=== PATIENT | female | born 1965 | race African-American/Black ===

== ENCOUNTER 2017-12-09 15:27 | Emergency (ER) | payer MEDICARE, OTHER ==
[2017-12-09] MEDS ORDERED: methylPREDNISolone Acetate 40 mg/ml Vial ONE (15:58)
[2017-12-09] MEDS ORDERED: cefTRIAXone\\ROCEPHIN 1 GM VIAL ONE (15:58)
[2017-12-09] MEDS ORDERED: Lidocaine 1% 20 ML MDV ONE (15:59)
== END 2017-12-09 16:30 | disposition home or self-care (01) ==
LOC: NAV ERS 15:27
DX: J20.9 Acute bronchitis, unspecified (principal); F17.210 Nicotine dependence, cigarettes, uncomplicated; M79.7 Fibromyalgia; F41.9 Anxiety disorder, unspecified; F32.9 Major depressive disorder, single episode, unspecified; M19.90 Unspecified osteoarthritis, unspecified site; M10.9 Gout, unspecified; I10 Essential (primary) hypertension
CPT/HCPCS: 96372; J0696; J1030; J2001

== ENCOUNTER 2018-07-28 22:08 | Emergency (ER) | payer MEDICARE, OTHER ==
[2018-07-28 22:58] LABS: #Basophils 0.1 thou/uL (0.0-0.2); #Eosinphils 0.1 thou/uL (0.0-0.7); #Lymphocytes 2.6 thou/uL (1.20-3.40); #Monocytes 0.4 thou/uL (0.11-0.59); #Neutrophils 3.3 thou/uL (1.40-6.50); %Eosinophils 2.2 % (0.0-10.0); %Lymphocytes 40.1 % (21.0-51.0); %Monocytes 6.7 % (0.0-10.0); %Neutrophils 50.1 % (42.0-75.0); Hemoglobin 13.2 g/dL (12.0-16.0); Mean Corpuscular HGB CONC 31.8 g/dL (32.0-36.0); Mean Corpuscular Hemoglobin 27.6 pg (27.0-31.0); Mean Corpuscular Volume 86.9 fL (78.0-98.0); Mean Platelet Volume 6.9 fL (7.4-10.4); Platelet Count 306 thou/uL (130-400); RBC Distribution Width 14.8 % (11.5-14.5); Red Blood Cell (RBC) Count 4.78 mill/uL (4.20-5.40); White Blood Cell (WBC) Count 6.5 thou/uL (4.8-10.8)
[2018-07-28 23:00] LABS: Bilirubin Negative (Negative); Blood, Urine Negative (Negative); Clarity Clear (Clear); Glucose, Urine (Dipstick) Negative (Negative); Leukocyte Negative (Negative); Nitrite Negative (Negative); Protein, Urine (Dipstick) Negative (Neg-Trace); Urobilinogen 0.2 mg/dL (0.2-1.0)
[2018-07-28 23:19] LABS: ALT (SGPT) 15 U/L (8-55); AST (SGOT) 18 U/L (5-34); Albumin 4.1 g/dL (3.5-5.0); Alkaline Phosphatase 122 U/L (40-150); Anion Gap 14 mmol/L (10-20); BUN (Urea Nitrogen) 8 mg/dL (9.8-20.1); Bilirubin, Total 0.2 mg/dL (0.2-1.2); Calc. Creatinine Clearance 0 mL/min (70-130); Calcium 10.2 mg/dL (7.8-10.44); Carbon Dioxide 24 mmol/L (22-29); Chloride 104 mmol/L (98-107); Estimated GFR-MDRD 90; Globulin 3.8 g/dL (2.4-3.5); Glucose 94 mg/dL (70-105); Lipase 24 U/L (8-78); Potassium 3.3 mmol/L (3.5-5.1); Protein, Total 7.9 g/dL (6.0-8.3); Sodium 139 mmol/L (136-145)
[2018-07-28] MEDS ORDERED: Ibuprofen 100 MG/5 ML UDCUP ONE (23:27)
[2018-07-28] MEDS ORDERED: Ketorolac Tromethamine 60 MG/2 ML VIAL ONE (23:52)
[2018-07-28] MEDS ORDERED: predniSONE 20 MG TAB ONE (23:52)
--- NOTE | 2018-07-29 00:22 | CT ---
ABDOMEN CT WITHOUT CONTRAST CT PELVIS WITHOUT CONTRAST 07/28/18 HISTORY: Patient was diagnosed with lupus and rheumatoid arthritis. Pain. COMPARISON: 03/29/10, 07/02/10. FINDINGS: CT ABDOMEN: Lung bases are clear. Heart size is normal. The visualized aorta is unremarkable. Gallbladder is surgically absent. Limited evaluation of solid organs due to the lack of IV contrast. Grossly, no solid organ abnormalit ies. There is stable 1. 4 cm nodule associated with the left adrenal gland. Attenuation coefficients do not suggest a benign adenoma. No gastrohepatic, retrocrural, or periportal lymphadenopathy. No mesenteric mass, lymphadenopathy, free air, or free fluid. Limited evaluation of the alimentary canal by the lack of oral contrast. Gastric mucosa, duodenum and multiple normal caliber small loops are identified. Ileocecal junction is normal. Normal caliber shena endix. Scattered fecal material in a nondistended, nondilated colon. Bilaterally, no evidence of obstructive uropathy. PELVIC CT: No mass, lymphadenopathy, free air or free fluid. The urinary bladder is unremarkable. Status post hysterectomy changes are noted. No osteoblastic or osteolytic lesions in the osseous structures. IMPRESSION: 1. No evidence of nephrolithiasis or obstructive uropathy. 2. Stable left adrenal nodule. POS: [facility]
== END 2018-07-29 00:04 | disposition home or self-care (01) ==
LOC: NAV ERS 22:08
DX: M54.5 Low back pain (principal); M10.9 Gout, unspecified; I10 Essential (primary) hypertension; F41.9 Anxiety disorder, unspecified; F32.9 Major depressive disorder, single episode, unspecified; F17.210 Nicotine dependence, cigarettes, uncomplicated; Z79.899 Other long term (current) drug therapy
CPT/HCPCS: 36415; 74176; 80053; 81003; 83690; 85025; 96372; J1885; J7506

== ENCOUNTER 2020-03-23 11:22 | Emergency (ER) | payer MEDICARE, OTHER ==
[2020-03-23 12:23] LABS: #Eosinphils 0.1 thou/uL (0.0-0.7); #Lymphocytes 2.1 thou/uL (1.20-3.40); #Monocytes 0.5 thou/uL (0.11-0.59); #Neutrophils 4.7 thou/uL (1.40-6.50); %Basophils 0.3 % (0.0-1.0); %Monocytes 7.2 % (0.0-10.0); %Neutrophils 63.5 % (42.0-75.0); Hemoglobin 11.8 g/dL (12.0-16.0); Mean Corpuscular HGB CONC 30.4 g/dL (32.0-36.0); Mean Corpuscular Volume 92.2 fL (78.0-98.0); Mean Platelet Volume 7.5 fL (7.4-10.4); Platelet Count 257 thou/uL (130-400); RBC Distribution Width 13.7 % (11.5-14.5); Red Blood Cell (RBC) Count 4.21 mill/uL (4.20-5.40); White Blood Cell (WBC) Count 7.4 thou/uL (4.8-10.8)
[2020-03-23 12:51] LABS: ALT (SGPT) 6 U/L (8-55); AST (SGOT) 10 U/L (5-34); Albumin 3.8 g/dL (3.5-5.0); Alkaline Phosphatase 93 U/L (40-110); Anion Gap 16 mmol/L (10-20); BUN (Urea Nitrogen) 5 mg/dL (9.8-20.1); Bilirubin, Total 0.3 mg/dL (0.2-1.2); Calc. Creatinine Clearance 0 mL/min (70-130); Calcium 9.1 mg/dL (7.8-10.44); Carbon Dioxide 28 mmol/L (22-29); Chloride 99 mmol/L (98-107); Estimated GFR-MDRD 82; Glucose 84 mg/dL (70-105); Protein, Total 7.8 g/dL (6.0-8.3); Sodium 140 mmol/L (136-145)
[2020-03-23 12:52] LABS: Bilirubin Negative (Negative); Blood, Urine Negative (Negative); Clarity Clear (Clear); Glucose, Urine (Dipstick) Negative (Negative); Leukocyte Negative (Negative); Nitrite Negative (Negative); Protein, Urine (Dipstick) Negative (Neg-Trace); Urobilinogen 0.2 mg/dL (Less than 2)
[2020-03-23 12:53] LABS: Potassium 2.5 mmol/L (3.5-5.1)
--- NOTE | 2020-03-23 13:41 | RAD ---
PORTABLE CHEST: 03/23/20 INDICATIONS: Chills and fatigue. Comparison made to prior chest film from 01/28/13. There is diffuse interstitial thickening bilaterally. This was present on the prior exam although the findings may appear more prominent today. There is no focal infiltrate or consolidation. No evidence of effusion. The vascular markings are within normal range. Heart and mediastinum unremarkable. IMPRESSION: Evidence of diffuse bilateral interstitial thickening. This may be chronic given the appearance of th e prior exam of 2012 although the interstitial thickening is more pronounced on the current study. Re commend pulmonary referral. POS: [facility]
[2020-03-23] MEDS ORDERED: Lorazepam 2 MG/ML VIAL ONE (13:51)
[2020-03-23] MEDS ORDERED: Potassium Chloride 10 MEQ/100 ML PREMIX BAG ONE (13:52)
[2020-03-23] MEDS ORDERED: Potassium Chloride 20 MEQ TAB ONE (13:52)
[2020-03-23] MEDS ORDERED: Aspirin Chewable 81 MG TAB ONE (13:52)
[2020-03-23] MEDS ORDERED: Magnesium 2 GM/50 ML BAG (IN WATER) ONE (13:52)
[2020-03-24 12:13] LABS: SARS-CoV-2 MS2 Positive; SARS-CoV-2 N Gene Negative; SARS-CoV-2 S Gene Negative; SARS-CoV-2 orf1ab Negative
== END 2020-03-23 16:32 | disposition short-term general hospital (02) ==
LOC: NAV ERS 11:22
DX: E87.6 Hypokalemia (principal); E83.42 Hypomagnesemia; R07.9 Chest pain, unspecified; Z20.828 Contact with and (suspected) exposure to other viral communicable diseases; M19.90 Unspecified osteoarthritis, unspecified site; M10.9 Gout, unspecified; I10 Essential (primary) hypertension; M06.9 Rheumatoid arthritis, unspecified; R41.9 Unspecified symptoms and signs involving cognitive functions and awareness; F32.9 Major depressive disorder, single episode, unspecified; F17.210 Nicotine dependence, cigarettes, uncomplicated; Z79.899 Other long term (current) drug therapy; M79.7 Fibromyalgia
CPT/HCPCS: 71045; 80053; 81003; 83735; 84484 ×2; 85025; 93005; 94760; 96365; 96366; 96368; 96375; 99285; U0003; 36415; 87635; J2060; J3475; J3480

== ENCOUNTER 2020-05-03 18:31 | Emergency (ER) | payer MEDICARE ==
--- NOTE | 2020-05-03 19:37 | CT ---
CT BRAIN WITHOUT CONTRAST: HISTORY: Headache FINDINGS: No evidence of acute infarct, hemorrhage, midline shift or abnormal extra-axial fluid collections is seen. The ventricular size is appropriate and the basilar cisterns are patent. The bony calvarium is intact. The visualized paranasal sinuses and mastoid air cells are well aerated. IMPRESSION: No CT evidence of acute intracranial process.
[2020-05-03 19:38] LABS: #Basophils 0.1 thou/uL (0.0-0.2); #Eosinphils 0.1 thou/uL (0.0-0.7); #Monocytes 0.5 thou/uL (0.11-0.59); #Neutrophils 2.7 thou/uL (1.40-6.50); %Lymphocytes 47.4 % (21.0-51.0); %Monocytes 8.1 % (0.0-10.0); %Neutrophils 41.6 % (42.0-75.0); Mean Corpuscular HGB CONC 31.2 g/dL (32.0-36.0); Mean Corpuscular Hemoglobin 27.6 pg (27.0-31.0); Mean Corpuscular Volume 88.5 fL (78.0-98.0); Platelet Count 198 thou/uL (130-400); RBC Distribution Width 12.7 % (11.5-14.5); Red Blood Cell (RBC) Count 3.61 mill/uL (4.20-5.40); White Blood Cell (WBC) Count 6.4 thou/uL (4.8-10.8)
[2020-05-03 19:44] LABS: Bilirubin Negative (Negative); Blood, Urine Negative (Negative); Clarity Clear (Clear); Glucose, Urine (Dipstick) Negative (Negative); Ketone, Urine Negative (Negative); Leukocyte Negative (Negative); Nitrite Negative (Negative); Protein, Urine (Dipstick) Negative (Neg-Trace); Urobilinogen 0.2 mg/dL (Less than 2)
[2020-05-03 19:54] LABS: ALT (SGPT) Less than 6 U/L (8-55); AST (SGOT) 8 U/L (5-34); Alkaline Phosphatase 99 U/L (40-110); Anion Gap 15 mmol/L (10-20); BUN (Urea Nitrogen) 9 mg/dL (9.8-20.1); Bilirubin, Total 0.2 mg/dL (0.2-1.2); Calc. Creatinine Clearance 0 mL/min (70-130); Carbon Dioxide 23 mmol/L (22-29); Chloride 93 mmol/L (98-107); Estimated GFR-MDRD 52; Globulin 3.3 g/dL (2.4-3.5); Glucose 101 mg/dL (70-105); Lipase 48 U/L (8-78); Protein, Total 7.3 g/dL (6.0-8.3); Sodium 128 mmol/L (136-145)
[2020-05-03 20:02] LABS: Potassium 2.8 mmol/L (3.5-5.1)
[2020-05-03] MEDS ORDERED: Sodium Chloride 0.9% 1,000 ML ONE (20:06)
[2020-05-03] MEDS ORDERED: diphenhydrAMINE 12.5 MG/5 ML UDCUP ONE (20:06)
[2020-05-03] MEDS ORDERED: Ondansetron PF 4 MG/2 ML Vial ONE (20:06)
[2020-05-03] MEDS ORDERED: diphenhydrAMINE 50 MG/ML VIAL ONE (20:07)
[2020-05-03] MEDS ORDERED: Potassium Chloride 20 MEQ TAB ONE (20:38)
== END 2020-05-03 21:21 | disposition home or self-care (01) ==
LOC: NAV ERS 18:31
DX: E87.1 Hypo-osmolality and hyponatremia (principal); E87.6 Hypokalemia; E86.9 Volume depletion, unspecified; I10 Essential (primary) hypertension; M10.9 Gout, unspecified; F17.210 Nicotine dependence, cigarettes, uncomplicated; Z79.899 Other long term (current) drug therapy
CPT/HCPCS: 70450; 80053; 81003; 83690; 84484; 85025; 93005; 94760; J1200; J2405; J7050; Q0163

== ENCOUNTER 2020-05-20 18:36 | Emergency (ER) | payer MEDICARE ==
[2020-05-20 19:54] LABS: Bilirubin Negative (Negative); Blood, Urine Negative (Negative); Clarity Clear (Clear); Glucose, Urine (Dipstick) Negative (Negative); Ketone, Urine Negative (Negative); Leukocyte Negative (Negative); Nitrite Negative (Negative); Protein, Urine (Dipstick) Negative (Neg-Trace); Urobilinogen 0.2 mg/dL (Less than 2)
[2020-05-20 19:58] LABS: Specific Gravity, Urine 1.004 (1.002-1.036)
[2020-05-20 20:04] LABS: #Basophils 0.1 thou/uL (0.0-0.2); #Eosinphils 0.2 thou/uL (0.0-0.7); #Lymphocytes 3.1 thou/uL (1.20-3.40); #Monocytes 0.9 thou/uL (0.11-0.59); #Neutrophils 6.8 thou/uL (1.40-6.50); %Basophils 1.1 % (0.0-1.0); %Eosinophils 1.8 % (0.0-10.0); %Lymphocytes 28.3 % (21.0-51.0); %Monocytes 7.6 % (0.0-10.0); %Neutrophils 61.2 % (42.0-75.0); Hemoglobin 10.9 g/dL (12.0-16.0); Mean Corpuscular HGB CONC 32.2 g/dL (32.0-36.0); Mean Corpuscular Hemoglobin 28.9 pg (27.0-31.0); Mean Corpuscular Volume 89.6 fL (78.0-98.0); Mean Platelet Volume 7.1 fL (7.4-10.4); Platelet Count 254 thou/uL (130-400); RBC Distribution Width 15.2 % (11.5-14.5); Red Blood Cell (RBC) Count 3.76 mill/uL (4.20-5.40); White Blood Cell (WBC) Count 11.1 thou/uL (4.8-10.8)
[2020-05-20 20:19] LABS: ALT (SGPT) 12 U/L (8-55); AST (SGOT) 14 U/L (5-34); Albumin 3.6 g/dL (3.5-5.0); Alkaline Phosphatase 66 U/L (40-110); Anion Gap 15 mmol/L (10-20); BUN (Urea Nitrogen) 7 mg/dL (9.8-20.1); Bilirubin, Total 0.3 mg/dL (0.2-1.2); Calc. Creatinine Clearance 0 mL/min (70-130); Calcium 7.7 mg/dL (7.8-10.44); Carbon Dioxide 32 mmol/L (22-29); Chloride 94 mmol/L (98-107); Estimated GFR-MDRD 78; Glucose 93 mg/dL (70-105); Protein, Total 6.6 g/dL (6.0-8.3); Sodium 139 mmol/L (136-145); Uric Acid 7.3 mg/dL (2.6-6.0)
[2020-05-20 20:21] LABS: Potassium 2.4 mmol/L (3.5-5.1)
[2020-05-20] MEDS ORDERED: NS 0.9% w/ 20 MEQ KCL 1,000 ML ONE (20:29)
== END 2020-05-20 22:13 | disposition short-term general hospital (02) ==
LOC: NAV ERS 18:36
DX: M10.9 Gout, unspecified (principal); E87.6 Hypokalemia; M19.90 Unspecified osteoarthritis, unspecified site; I10 Essential (primary) hypertension; M79.7 Fibromyalgia; M06.9 Rheumatoid arthritis, unspecified; F41.9 Anxiety disorder, unspecified; F32.9 Major depressive disorder, single episode, unspecified; F17.210 Nicotine dependence, cigarettes, uncomplicated; Z79.899 Other long term (current) drug therapy
CPT/HCPCS: 80053; 81003; 84550; 85025; 93005; 96365; J3480

== ENCOUNTER 2020-05-24 21:41 | Emergency (ER) | payer MEDICARE ==
[2020-05-24] MEDS ORDERED: Sodium Chloride 0.9% 1,000 ML ONE (22:07)
[2020-05-24 22:31] LABS: #Basophils 0.1 thou/uL (0.0-0.2); #Eosinphils 0.2 thou/uL (0.0-0.7); #Lymphocytes 3.5 thou/uL (1.20-3.40); #Neutrophils 4.6 thou/uL (1.40-6.50); %Basophils 0.8 % (0.0-1.0); %Eosinophils 1.6 % (0.0-10.0); %Lymphocytes 37.2 % (21.0-51.0); %Monocytes 10.5 % (0.0-10.0); %Neutrophils 49.9 % (42.0-75.0); Hemoglobin 10.1 g/dL (12.0-16.0); Mean Corpuscular HGB CONC 31.2 g/dL (32.0-36.0); Mean Corpuscular Hemoglobin 28.8 pg (27.0-31.0); Mean Corpuscular Volume 92.4 fL (78.0-98.0); Mean Platelet Volume 7.6 fL (7.4-10.4); Platelet Count 224 thou/uL (130-400); RBC Distribution Width 16.7 % (11.5-14.5); Red Blood Cell (RBC) Count 3.49 mill/uL (4.20-5.40); White Blood Cell (WBC) Count 9.3 thou/uL (4.8-10.8)
[2020-05-24 22:39] LABS: PTT 30.3 sec (22.9-36.1)
[2020-05-24 22:43] LABS: Prothrombin Time 13.3 sec (12.0-14.7)
[2020-05-24 22:46] LABS: ALT (SGPT) 14 U/L (8-55); AST (SGOT) 13 U/L (5-34); Albumin 3.4 g/dL (3.5-5.0); Alkaline Phosphatase 69 U/L (40-110); Anion Gap 13 mmol/L (10-20); BUN (Urea Nitrogen) 7 mg/dL (9.8-20.1); Bilirubin, Total 0.2 mg/dL (0.2-1.2); CK (CPK) 34 U/L (29-168); Calc. Creatinine Clearance 0 mL/min (70-130); Calcium 9.6 mg/dL (7.8-10.44); Carbon Dioxide 27 mmol/L (22-29); Chloride 103 mmol/L (98-107); Estimated GFR-MDRD 65; Globulin 3.1 g/dL (2.4-3.5); Glucose 95 mg/dL (70-105); Magnesium 1.9 mg/dL (1.6-2.6); Potassium 4.2 mmol/L (3.5-5.1); Protein, Total 6.5 g/dL (6.0-8.3); Sodium 139 mmol/L (136-145)
== END 2020-05-24 23:44 | disposition home or self-care (01) ==
LOC: NAV ERS 21:41
DX: E86.0 Dehydration (principal); M19.90 Unspecified osteoarthritis, unspecified site; M10.9 Gout, unspecified; I10 Essential (primary) hypertension; M79.7 Fibromyalgia; M06.9 Rheumatoid arthritis, unspecified; F41.9 Anxiety disorder, unspecified; F32.9 Major depressive disorder, single episode, unspecified; F17.210 Nicotine dependence, cigarettes, uncomplicated; Z79.899 Other long term (current) drug therapy
CPT/HCPCS: 36416; 80053; 82550; 83735; 83880; 84484; 85025; 85610; 85730; 93005; 96360; J7050

== ENCOUNTER 2020-05-28 19:37 | Emergency (ER) | payer MEDICARE ==
[2020-05-28 20:07] LABS: #Basophils 0.1 thou/uL (0.0-0.2); #Eosinphils 0.2 thou/uL (0.0-0.7); #Lymphocytes 3.6 thou/uL (1.20-3.40); #Monocytes 1.1 thou/uL (0.11-0.59); #Neutrophils 5.1 thou/uL (1.40-6.50); %Basophils 0.8 % (0.0-1.0); %Eosinophils 1.8 % (0.0-10.0); %Lymphocytes 35.6 % (21.0-51.0); %Monocytes 10.7 % (0.0-10.0); Hemoglobin 11.9 g/dL (12.0-16.0); Mean Corpuscular HGB CONC 29.8 g/dL (32.0-36.0); Mean Corpuscular Hemoglobin 28.7 pg (27.0-31.0); Mean Corpuscular Volume 96.4 fL (78.0-98.0); Mean Platelet Volume 7.4 fL (7.4-10.4); Platelet Count 267 thou/uL (130-400); RBC Distribution Width 17.3 % (11.5-14.5); Red Blood Cell (RBC) Count 4.17 mill/uL (4.20-5.40)
[2020-05-28] MEDS ORDERED: Promethazine HCl 25 MG/ML VIAL ONE (20:18)
[2020-05-28] MEDS ORDERED: Pantoprazole 40 MG VIAL ONE (20:18)
[2020-05-28 20:24] LABS: ALT (SGPT) 7 U/L (8-55); AST (SGOT) 12 U/L (5-34); Albumin 3.8 g/dL (3.5-5.0); Alkaline Phosphatase 79 U/L (40-110); Anion Gap 15 mmol/L (10-20); BUN (Urea Nitrogen) 15 mg/dL (9.8-20.1); Bilirubin, Total 0.2 mg/dL (0.2-1.2); Calc. Creatinine Clearance 0 mL/min (70-130); Calcium 10.1 mg/dL (7.8-10.44); Carbon Dioxide 21 mmol/L (22-29); Chloride 103 mmol/L (98-107); Estimated GFR-MDRD 57; Globulin 3.6 g/dL (2.4-3.5); Glucose 104 mg/dL (70-105); Lipase 47 U/L (8-78); Magnesium 1.7 mg/dL (1.6-2.6); Potassium 4.3 mmol/L (3.5-5.1); Protein, Total 7.4 g/dL (6.0-8.3); Sodium 135 mmol/L (136-145)
== END 2020-05-28 21:18 | disposition home or self-care (01) ==
LOC: NAV ERS 19:37
DX: K29.00 Acute gastritis without bleeding (principal); M19.90 Unspecified osteoarthritis, unspecified site; I10 Essential (primary) hypertension; M06.9 Rheumatoid arthritis, unspecified; F17.210 Nicotine dependence, cigarettes, uncomplicated; F41.9 Anxiety disorder, unspecified; F32.9 Major depressive disorder, single episode, unspecified; M10.9 Gout, unspecified; Z79.899 Other long term (current) drug therapy; Z79.84 Long term (current) use of oral hypoglycemic drugs
CPT/HCPCS: 80053; 83690; 83735; 85025; 96365; 96375; C9113; J2550

== ENCOUNTER 2020-06-05 14:55 | Emergency (ER) | payer MEDICARE ==
[2020-06-05] MEDS ORDERED: Mag-Al Plus 1200 MG/1200 MG/120 MG/30 ML UDCUP ONE (15:48)
== END 2020-06-05 16:35 | disposition home or self-care (01) ==
LOC: NAV ERS 14:55
DX: K29.70 Gastritis, unspecified, without bleeding (principal); K59.00 Constipation, unspecified; I10 Essential (primary) hypertension; M10.9 Gout, unspecified; M19.90 Unspecified osteoarthritis, unspecified site; M06.9 Rheumatoid arthritis, unspecified; F41.9 Anxiety disorder, unspecified; F32.9 Major depressive disorder, single episode, unspecified; F17.210 Nicotine dependence, cigarettes, uncomplicated; Z79.899 Other long term (current) drug therapy
CPT/HCPCS: 99283

== ENCOUNTER 2020-07-28 17:50 | Emergency (ER) | payer MEDICARE ==
--- NOTE | 2020-07-28 18:43 | RAD ---
RIGHT FOOT RADIOGRAPHS THREE VIEWS: 07/28/20 PROVIDED CLINICAL HISTORY: Pain status post injury. FINDINGS: There is an obliquely oriented, nondisplaced fracture involving the distal fifth metatarsal shaft/nec k region. No additional fracture is evident. Hallux valgus with bunion formation. Alignment appears o therwise anatomic. Joint spaces appear preserved. Plantar calcaneal enthesophyte formation is noted. IMPRESSION: Nondisplaced obliquely oriented fifth metatarsal shaft fracture. POS: [facility]
[2020-07-28] MEDS ORDERED: Ketorolac Tromethamine 30 MG/ML VIAL ONE (18:49)
== END 2020-07-28 19:05 | disposition home or self-care (01) ==
LOC: NAV ERS 17:50
DX: S92.354A Nondisplaced fracture of fifth metatarsal bone, right foot, initial encounter for closed fracture (principal); F17.210 Nicotine dependence, cigarettes, uncomplicated; G47.00 Insomnia, unspecified; J44.9 Chronic obstructive pulmonary disease, unspecified; M10.9 Gout, unspecified; Z79.84 Long term (current) use of oral hypoglycemic drugs; Z79.891 Long term (current) use of opiate analgesic; Z79.899 Other long term (current) drug therapy; W18.40XA Slipping, tripping and stumbling without falling, unspecified, initial encounter
CPT/HCPCS: 96372; J1885

== ENCOUNTER 2020-09-24 13:38 | Emergency (ER) | payer MEDICARE ==
[2020-09-24 14:08] LABS: #Eosinphils 0.1 thou/uL (0.0-0.7); #Lymphocytes 2.4 thou/uL (1.20-3.40); #Monocytes 0.5 thou/uL (0.11-0.59); #Neutrophils 3.6 thou/uL (1.40-6.50); %Basophils 0.5 % (0.0-1.0); %Eosinophils 1.2 % (0.0-10.0); %Lymphocytes 36.6 % (21.0-51.0); %Monocytes 7.5 % (0.0-10.0); %Neutrophils 54.2 % (42.0-75.0); Hemoglobin 12.5 g/dL (12.0-16.0); Mean Corpuscular HGB CONC 31.6 g/dL (32.0-36.0); Mean Corpuscular Hemoglobin 29.2 pg (27.0-31.0); Mean Corpuscular Volume 92.4 fL (78.0-98.0); Mean Platelet Volume 7.7 fL (7.4-10.4); Platelet Count 217 thou/uL (130-400); RBC Distribution Width 13.4 % (11.5-14.5); Red Blood Cell (RBC) Count 4.29 mill/uL (4.20-5.40); White Blood Cell (WBC) Count 6.6 thou/uL (4.8-10.8)
--- NOTE | 2020-09-24 14:17 | RAD ---
Chest AP view INDICATION: History of dyspnea COMPARISON: Prior exam dated April 22, 2020 FINDINGS: Lungs: Diffuse interstitial prominence is stable Cardiac silhouette: The cardiomediastinal silhouette appears within normal limits. Pulmonary vasculature: Normal Pleural spaces: No pleural effusion or pneumothorax is demonstrated. Upper abdomen: No abnormality seen. Osseous structures: No acute osseous abnormality. Additional findings: None. IMPRESSION: Diffuse interstitial prominence likely reflective of underlying fibrosis. No acute infiltrative opaci ty demonstrated.
[2020-09-24 14:26] LABS: ALT (SGPT) 8 U/L (8-55); AST (SGOT) 12 U/L (5-34); Albumin 3.9 g/dL (3.5-5.0); Alkaline Phosphatase 107 U/L (40-110); Anion Gap 14 mmol/L (10-20); BUN (Urea Nitrogen) 5 mg/dL (9.8-20.1); Bilirubin, Total 0.2 mg/dL (0.2-1.2); Calc. Creatinine Clearance 0 mL/min (70-130); Calcium 8.8 mg/dL (7.8-10.44); Carbon Dioxide 21 mmol/L (22-29); Chloride 105 mmol/L (98-107); Globulin 3.5 g/dL (2.4-3.5); Glucose 83 mg/dL (70-105); Protein, Total 7.4 g/dL (6.0-8.3); Sodium 137 mmol/L (136-145)
[2020-09-24] MEDS ORDERED: Magnesium 2 GM/50 ML BAG (IN WATER) ONE (14:35)
[2020-09-24] MEDS ORDERED: Potassium Chloride 20 MEQ TAB ONE (14:38)
[2020-09-24 14:46] LABS: Bilirubin Negative (Negative); Blood, Urine Negative (Negative); Clarity Clear (Clear); Glucose, Urine (Dipstick) Negative (Negative); Ketone, Urine Negative (Negative); Leukocyte Negative (Negative); Nitrite Negative (Negative); Protein, Urine (Dipstick) Negative (Neg-Trace); Specific Gravity, Urine Less/Equal 1.005 (1.005-1.030); Urobilinogen 0.2 mg/dL (Less than 2)
== END 2020-09-24 16:00 | disposition home or self-care (01) ==
LOC: NAV ERS 13:38
DX: E87.6 Hypokalemia (principal); E83.42 Hypomagnesemia; J84.10 Pulmonary fibrosis, unspecified; R19.7 Diarrhea, unspecified; E11.9 Type 2 diabetes mellitus without complications; M10.9 Gout, unspecified; F17.210 Nicotine dependence, cigarettes, uncomplicated; M79.7 Fibromyalgia; Z79.899 Other long term (current) drug therapy
CPT/HCPCS: 71045; 80053; 81003; 83735; 84484; 85025; 93005; 94760; 96365; J3475

== ENCOUNTER 2020-10-02 20:51 | Emergency (ER) | payer MEDICARE ==
[2020-10-02] MEDS ORDERED: Sodium Chloride 0.9% 1,000 ML ONE (21:19)
[2020-10-02 22:15] LABS: #Basophils 0.1 thou/uL (0.0-0.2); #Eosinphils 0.1 thou/uL (0.0-0.7); #Lymphocytes 2.8 thou/uL (1.20-3.40); #Monocytes 0.6 thou/uL (0.11-0.59); #Neutrophils 3.7 thou/uL (1.40-6.50); %Lymphocytes 38.2 % (21.0-51.0); %Monocytes 8.3 % (0.0-10.0); %Neutrophils 50.4 % (42.0-75.0); Hemoglobin 13.1 g/dL (12.0-16.0); Mean Corpuscular HGB CONC 31.7 g/dL (32.0-36.0); Mean Corpuscular Hemoglobin 28.5 pg (27.0-31.0); Mean Platelet Volume 7.7 fL (7.4-10.4); Platelet Count 233 thou/uL (130-400); RBC Distribution Width 13.5 % (11.5-14.5); White Blood Cell (WBC) Count 7.3 thou/uL (4.8-10.8)
[2020-10-02 22:40] LABS: ALT (SGPT) 10 U/L (8-55); AST (SGOT) 13 U/L (5-34); Albumin 4.2 g/dL (3.5-5.0); Alkaline Phosphatase 109 U/L (40-110); Anion Gap 16 mmol/L (10-20); BUN (Urea Nitrogen) 15 mg/dL (9.8-20.1); Bilirubin, Total 0.2 mg/dL (0.2-1.2); CK (CPK) 51 U/L (29-168); Calc. Creatinine Clearance 0 mL/min (70-130); Calcium 9.7 mg/dL (7.8-10.44); Carbon Dioxide 22 mmol/L (22-29); Chloride 103 mmol/L (98-107); Globulin 3.4 g/dL (2.4-3.5); Glucose 98 mg/dL (70-105); Magnesium 2.1 mg/dL (1.6-2.6); Potassium 4.7 mmol/L (3.5-5.1); Protein, Total 7.6 g/dL (6.0-8.3); Sodium 136 mmol/L (136-145)
== END 2020-10-02 23:16 | disposition home or self-care (01) ==
LOC: NAV ERS 20:51
DX: E86.0 Dehydration (principal); F17.210 Nicotine dependence, cigarettes, uncomplicated; J44.9 Chronic obstructive pulmonary disease, unspecified; I10 Essential (primary) hypertension; Z79.899 Other long term (current) drug therapy
CPT/HCPCS: 80053; 82550; 83735; 83880; 84484; 85025; 93005; J7050

== ENCOUNTER 2021-05-28 17:17 | Emergency (ER) | payer MEDICARE | END 2021-05-28 18:47 | disposition home or self-care (01) | LOC: NAV ERS 17:17 | DX: M79.645 Pain in left finger(s) (principal); J44.9 Chronic obstructive pulmonary disease, unspecified; M19.90 Unspecified osteoarthritis, unspecified site; M10.9 Gout, unspecified; I11.0 Hypertensive heart disease with heart failure; I50.9 Heart failure, unspecified; F17.210 Nicotine dependence, cigarettes, uncomplicated ==

== ENCOUNTER 2021-07-27 20:46 | Emergency (ER) | payer MEDICARE ==
[2021-07-27] MEDS ORDERED: Lidocaine 1% (PF) 30 ML VIAL ONE (21:09)
== END 2021-07-27 21:30 | disposition home or self-care (01) ==
LOC: NAV ERS 20:46
DX: M79.2 Neuralgia and neuritis, unspecified (principal); J44.9 Chronic obstructive pulmonary disease, unspecified; I11.0 Hypertensive heart disease with heart failure; I50.9 Heart failure, unspecified; F17.210 Nicotine dependence, cigarettes, uncomplicated; Z79.899 Other long term (current) drug therapy
CPT/HCPCS: 64405; J2001

== ENCOUNTER 2021-10-11 12:27 | Emergency (ER) | payer MEDICARE ==
[2021-10-12 18:33] LABS: SARS-CoV-2 PCR by NAA Not Detected (NotDetected)
== END 2021-10-11 13:26 | disposition home or self-care (01) ==
LOC: NAV ERS 12:27
DX: B34.9 Viral infection, unspecified (principal); H10.9 Unspecified conjunctivitis; Z20.822 Contact with and (suspected) exposure to COVID-19; I11.0 Hypertensive heart disease with heart failure; I50.9 Heart failure, unspecified; J44.9 Chronic obstructive pulmonary disease, unspecified; M19.90 Unspecified osteoarthritis, unspecified site; M10.9 Gout, unspecified; F17.210 Nicotine dependence, cigarettes, uncomplicated
CPT/HCPCS: 99283; U0003; U0005

== ENCOUNTER 2022-03-04 13:21 | Emergency (ER) | payer MEDICARE, OTHER ==
[2022-03-04 14:09] LABS: #Basophils 0.1 thou/uL (0.0-0.2); #Eosinphils 0.2 thou/uL (0.0-0.7); #Lymphocytes 2.4 thou/uL (1.20-3.40); #Monocytes 0.4 thou/uL (0.11-0.59); #Neutrophils 2.8 thou/uL (1.40-6.50); %Eosinophils 2.6 % (0.0-10.0); %Lymphocytes 41.9 % (21.0-51.0); %Monocytes 7.1 % (0.0-10.0); %Neutrophils 47.4 % (42.0-75.0); Hemoglobin 12.2 g/dL (12.0-16.0); Mean Corpuscular HGB CONC 30.6 g/dL (32.0-36.0); Mean Corpuscular Hemoglobin 29.6 pg (27.0-31.0); Mean Corpuscular Volume 96.7 fL (78.0-98.0); Mean Platelet Volume 8.5 fL (7.4-10.4); Platelet Count 308 thou/uL (130-400); RBC Distribution Width 14.8 % (11.5-14.5); Red Blood Cell (RBC) Count 4.11 mill/uL (4.20-5.40); White Blood Cell (WBC) Count 5.8 thou/uL (4.8-10.8)
[2022-03-04 14:32] LABS: Clarity Clear (Clear)
[2022-03-04 14:35] LABS: Leukocyte Trace (Negative); pH, Urine 5.5 (5.0-9.0)
[2022-03-04 14:36] LABS: Nitrite Negative (Negative)
[2022-03-04 14:37] LABS: Bilirubin Small (Negative); Glucose, Urine (Dipstick) Negative (Negative); Ketone, Urine Trace mg/dL (Negative); Protein, Urine (Dipstick) 30 mg/dL (Neg-Trace); Specific Gravity, Urine 1.025 (1.002-1.036); Urobilinogen 0.2 mg/dL (Less than 2)
[2022-03-04 14:38] LABS: Bacteria/HPF Rare-Few HPF (None Seen); Blood, Urine Small (Negative); RBC/HPF 0-3 HPF (0-3); Squamous Epithelial 0-3 HPF (0-3); WBC/HPF 0-3 HPF (0-3)
[2022-03-04 14:40] LABS: ALT (SGPT) 6 U/L (8-55); AST (SGOT) 12 U/L (5-34); Albumin 4.2 g/dL (3.5-5.0); Alkaline Phosphatase 93 U/L (40-110); Anion Gap 16 mmol/L (10-20); BUN (Urea Nitrogen) 17 mg/dL (9.8-20.1); Bilirubin, Total 0.2 mg/dL (0.2-1.2); CK (CPK) 31 U/L (29-168); Calc. Creatinine Clearance 0 mL/min (70-130); Calcium 9.2 mg/dL (7.8-10.44); Carbon Dioxide 20 mmol/L (22-29); Chloride 100 mmol/L (98-107); Globulin 2.4 g/dL (2.4-3.5); Glucose 87 mg/dL (70-105); Potassium 3.8 mmol/L (3.5-5.1); Protein, Total 6.6 g/dL (6.0-8.3); Sodium 132 mmol/L (136-145)
== END 2022-03-04 15:22 | disposition home or self-care (01) ==
LOC: NAV ERS 13:21
DX: R53.83 Other fatigue (principal); R53.1 Weakness; E11.9 Type 2 diabetes mellitus without complications; J44.9 Chronic obstructive pulmonary disease, unspecified; I11.0 Hypertensive heart disease with heart failure; I50.9 Heart failure, unspecified; F17.210 Nicotine dependence, cigarettes, uncomplicated; Z79.899 Other long term (current) drug therapy; Z79.84 Long term (current) use of oral hypoglycemic drugs
CPT/HCPCS: 71045; 80053; 81003; 81015; 82550; 83605; 83880; 84443; 84484; 85025; 93005; 94760

== ENCOUNTER 2022-06-01 14:01 | Emergency (ER) | payer OTHER | END 2022-06-01 15:01 | disposition home or self-care (01) | LOC: NAV ERS 14:01 | DX: U07.1 COVID-19 (principal); J06.9 Acute upper respiratory infection, unspecified; E11.9 Type 2 diabetes mellitus without complications; J44.9 Chronic obstructive pulmonary disease, unspecified; I11.0 Hypertensive heart disease with heart failure; I50.9 Heart failure, unspecified; F17.210 Nicotine dependence, cigarettes, uncomplicated; Z79.84 Long term (current) use of oral hypoglycemic drugs; Z79.899 Other long term (current) drug therapy | CPT/HCPCS: 99283; U0003; U0005 ==

== ENCOUNTER 2022-06-12 16:18 | Emergency (ER) | payer OTHER ==
[2022-06-12] MEDS ORDERED: Prochlorperazine 10 MG/2 ML VIAL ONE (18:07)
[2022-06-12] MEDS ORDERED: Ketorolac Tromethamine 30 MG/ML VIAL ONE (18:07)
[2022-06-12] MEDS ORDERED: diphenhydrAMINE 50 MG/ML VIAL ONE (18:07)
[2022-06-12] MEDS ORDERED: Sodium Chloride 0.9% 1,000 ML ONE (18:07)
== END 2022-06-12 19:57 | disposition home or self-care (01) ==
LOC: NAV ERS 16:18
DX: R51.9 Headache, unspecified (principal); R29.6 Repeated falls; M79.604 Pain in right leg; M79.601 Pain in right arm; J44.9 Chronic obstructive pulmonary disease, unspecified; I10 Essential (primary) hypertension; F17.210 Nicotine dependence, cigarettes, uncomplicated
CPT/HCPCS: 70450; 96365; 96375; J0780; J1200; J1885; J7050